=== PATIENT | female | born 1960 | race Caucasian/White ===

== ENCOUNTER → 2018-03-30 | Outpatient (CLI) | payer MEDICARE ==
[~2018-03-30] MED LIST: BACITRACIN-NEO0.9 GM PO; BACTRIM DS 8001 TA1 PO; CEPHALEXIN500 M1 PO; CLEOCIN150 MG PO; Motrin,Rufen800 MG PO; NORCO 5-325 TA1 EACH PO; SEPTDS PO; SUBOXONE 8 MG-1 EACH SL
[2018-03-31 12:06] LABS: HEPATITIS B SURFACE AB 006395 Non Reactive (.); HEPATITIS B SURFACE AG Negative (Negative)
[2018-03-31 15:16] LABS: HEPATITIS C AB >11.0 (0.0-0.9)
== END | disposition home or self-care (01) ==
LOC: LAB 18:12
PROVIDERS: Psychiatry & Neurology Psychiatry
DX: Z11.59 Encounter for screening for other viral diseases (principal); Z72.89 Other problems related to lifestyle

== ENCOUNTER 2018-11-15 13:43 | Emergency (ER) | payer MEDICARE ==
[~2018-11-15] VITALS: Ht 152.4 cm; Wt 51.7 kg
[2018-11-15 13:46] VITALS: BP 133/75
[2018-11-15 14:30] LABS: BASO # 0.1 10*3/uL (0.0-0.1); BASO % 0.9 % (0.0-1.0); EOS # 0.1 10*3/uL (0.0-0.4); EOS % 1.3 % (1.0-4.0); HEMOGLOBIN 14.7 g/dl (12.0-16.0); LYMPH # 2.5 10*3/uL (1.3-4.4); LYMPH % 35.4 % (27.0-41.0); MEAN CELL VOLUME 97.2 fl (81.0-99.0); MEAN CORPUSCULAR HGB 31.7 pg (27.0-31.0); MEAN CORPUSCULAR HGB CONC 32.7 g/dl (33.0-37.0); MEAN PLATELET VOLUME 9.4 fl (9.6-12.3); MONO # 0.7 10*3/uL (0.1-1.0); MONO % 9.5 % (3.0-9.0); NEUT # 3.7 10*3/uL (2.3-7.9); NEUT % 52.8 % (47.0-73.0); PLATELET COUNT AUTOMATED 259 10*3/uL (130-400); RED BLOOD COUNT 4.63 10*6/uL (4.10-5.10); WHITE BLOOD COUNT 6.9 10*3/uL (4.8-10.8)
[2018-11-15 14:41] LABS: ACT PARTIAL THROMBO TIME 28.1 SECONDS (20.0-32.1); INTERNATIONAL NORM RATIO 0.9 (2.0-3.5)
--- NOTE | 2018-11-15 14:45 | NUR ---
2 ATTEMPTS AT AN IV FAILED. I WILL ASK ANOTHER NURSE TO LOOK FOR A SITE
[2018-11-15 14:50] LABS: ALBUMIN 3.2 gm/dl (3.1-4.5); ALKALINE PHOSPHATASE 335 U/L (45-117); BUN 13 mg/dl (7-24); CHLORIDE 107 mmol/L (98-107); CREATININE 0.72 mg/dL (0.55-1.02); POTASSIUM 4.2 mmol/L (3.5-5.1); SGOT/AST 37 IU/L (3-35); SGPT/ALT 33 U/L (12-78); SODIUM 134 mmol/L (136-145); TOTAL PROTEIN 8.3 gm/dL (6.4-8.2)
--- NOTE | 2018-11-15 15:36 | NUR ---
TWO OTHER NURSES TRIED WITHOUT SUCCESS FOR AN IV SITE. RENITA VIRGEN NOTIFED
--- NOTE | 2018-11-15 15:45 | NUR ---
I CALLED THE LAB TO SEE WHY THE URINE WAS SAYING NOT RECIEVED WHEN I SENT IT OVER A HALF HOUR AGO. THEY LOOKED IN THE TUBE SYSTEM AND THEY DID HAVE IT
[2018-11-15 15:56] LABS: BILIRUBIN NEGATIVE (NEGATIVE); BLOOD NEGATIVE (NEGATIVE); CLARITY CLEAR (CLEAR); COLOR YELLOW (YELLOW); GLUCOSE NEGATIVE (NEGATIVE); KETONE NEGATIVE (NEGATIVE); LEUKO ESTERASE 2+ (NEGATIVE); NITRITE NEGATIVE (NEGATIVE); UROBILINOGEN 0.2 E.U./dl (0.2-1.0)
[2018-11-15 16:03] LABS: URINE AMPHETAMINES < 1000 (1000ng/ml); URINE BARBITURATES < 200 (200ng/ml); URINE BENZODIAZEPINES < 200 (200ng/ml); URINE CANNABINOIDS (THC) > 50 (50ng/ml); URINE COCAINE < 300 (300ng/ml); URINE METHADONE < 300 (300ng/ml); URINE OPIATES < 300 (300ng/ml)
[2018-11-15 16:06] LABS: URINE PHENCYCLIDINE < 25 (25ng/ml)
--- NOTE | 2018-11-15 16:25 | NUR ---
UPWARDS OF 8 IV INSERTION ATTEMPTS HAVE BEEN UNSUCCESSFUL. THE PATIENT IN MY OPINION HAS NO PERIPHERAL SITES ON ARMS OR FEET. PROVIDER AND PT'S NURSE MADE AWARE.
--- NOTE | 2018-11-15 16:35 | NUR ---
I CALLED THE RECIEVING NURSE TO LET HER KNOW THAT IV ACCESS HAS NOT BEEN OBTAINED YET. VERBAL UNDERSTANDING NOTED
--- NOTE | 2018-11-15 17:17 | NUR ---
THE PT DOES NOT WANT TO BE ADMITTED NOW. SHE DOES NOT WANT TO BE STUCK ANYMORE. SHE WOULD LIKE TO TRY ANOTHER ROUND OF ORAL ANTIBIOTICS. DR HARRIS AND RENITA VIRGEN HAVE BOTH BEEN NOTIFIED OF PATIENT REQUEST
[2018-11-15] MEDS ORDERED: FLAGYL500 MG PO (17:23)
[2018-11-15] MEDS ORDERED: CIPRO500 MG PO (17:23)
--- NOTE | 2018-11-15 17:31 | NUR ---
EDThe patient, PHYLLIS MENDEZ, 58, 60, [id number], [id number], presented to the Emergency Department at 1345. The patient's Chief Complaint was CELLULITIS. The patient subsequently left "Against Medical Advice" at 1730. Treatment completed included BLOOD WORK, X-RAY, CAT SCAN, URINE SCREEN, URINE DRUGS, MULTIPLE ATTEMPTS AT IV ACCESS . Possible complications and consequences of not following medical advice were clearly explained to the patient by Dr. PROMISE ARZOLA , and DARWIN CANDELARIO LPN RN. Assessment of the patient's competence, for making the decision to refuse completion of previously requested exam and treatment, includes alert and oriented. Attempts made to get patient involved in persuading the patient to accept, ANUSHA Tay DNP, the physician's recommendations. Discussion included . The patient's response was I DONT WANT STUCK ANYMORE . Family/friends who witnessed the discussion includes . Signatures WERE requested. The patient DID sign the chart; this was witnessed by DARWIN CANDELARIO LPN RN. The patient's reason for departing, prior to completion of treatment was OTHER. The patient's disposition is dc against medical advice, to the care of patient. Arrangements have been made for the ED staff to "Call Back" the patient the following day, to inquire about the patient's medical status and encourage PHYLLIS MENDEZ, to seek medical attention, if this has not been completed. DARWIN CANDELARIO
== END 2018-11-15 17:30 | disposition left against medical advice (07) ==
LOC: ED 13:43 → EDHOLD 15:59 → ED 15:59 → 4E 16:31 → EDHOLD 16:31 → ED 17:30
PROVIDERS: Nurse Practitioner Family
DX: L03.011 Cellulitis of right finger (principal); F11.90 Opioid use, unspecified, uncomplicated; F17.200 Nicotine dependence, unspecified, uncomplicated; Z86.14 Personal history of Methicillin resistant Staphylococcus aureus infection; Z79.899 Other long term (current) drug therapy

== ENCOUNTER → 2019-01-06 | Outpatient (CLI) | payer MEDICARE ==
[~2019-01-06] MED LIST changes: +CIPRO500 MG PO; +FLAGYL500 MG PO
[2019-01-06 15:30] LABS: BASO # 0.1 10*3/uL (0.0-0.1); BASO % 0.6 % (0.0-1.0); EOS # 0.1 10*3/uL (0.0-0.4); EOS % 0.6 % (1.0-4.0); HEMATOCRIT 45.5 % (37.0-47.0); HEMOGLOBIN 14.8 g/dl (12.0-16.0); LYMPH # 2.8 10*3/uL (1.3-4.4); LYMPH % 28.8 % (27.0-41.0); MEAN CELL VOLUME 97.6 fl (81.0-99.0); MEAN CORPUSCULAR HGB 31.8 pg (27.0-31.0); MEAN CORPUSCULAR HGB CONC 32.5 g/dl (33.0-37.0); MEAN PLATELET VOLUME 11.5 fl (9.6-12.3); MONO # 0.4 10*3/uL (0.1-1.0); MONO % 3.8 % (3.0-9.0); NEUT # 6.3 10*3/uL (2.3-7.9); NEUT % 65.8 % (47.0-73.0); PLATELET COUNT AUTOMATED 221 10*3/uL (130-400); RED BLOOD COUNT 4.66 10*6/uL (4.10-5.10); RED CELL DISTRI WIDTH 14.8 % (0-14.5); WHITE BLOOD COUNT 9.6 10*3/uL (4.8-10.8)
[2019-01-06 16:06] LABS: VITAMIN D, 25-HYDROXY 13.9 ng/mL (30-100)
[2019-01-06 16:19] LABS: ALBUMIN 3.5 gm/dl (3.1-4.5); BUN 10 mg/dl (7-24); CHLORIDE 110 mmol/L (98-107); POTASSIUM 3.1 mmol/L (3.5-5.1); SGOT/AST 29 IU/L (3-35); SGPT/ALT 26 U/L (12-78); SODIUM 137 mmol/L (136-145)
[2019-01-06 16:31] LABS: ALKALINE PHOSPHATASE 250 U/L (45-117); CHOLESTEROL 146 mg/dL (<200); CREATININE 0.75 mg/dL (0.55-1.02); HDL CHOLESTEROL 41 mg/dl (40-60); LDL CHOLESTEROL 75 mg/dL (9-159); TRIGLYCERIDES 148 mg/dl (<150); VLDL CHOLESTEROL 30 mg/dL (6-40)
== END | disposition home or self-care (01) ==
LOC: RESCLI 00:54
PROVIDERS: Student in an Organized Health Care Education/Training Program
DX: Z12.11 Encounter for screening for malignant neoplasm of colon (principal); Z12.4 Encounter for screening for malignant neoplasm of cervix; M54.5 Low back pain; G89.29 Other chronic pain; F32.9 Major depressive disorder, single episode, unspecified; Z79.899 Other long term (current) drug therapy; Z88.8 Allergy status to other drugs, medicaments and biological substances

== ENCOUNTER 2020-08-19 16:17 | Inpatient (IN) | payer MEDICARE ==
[~2020-08-19] VITALS: Ht 154.9 cm; Wt 55.8 kg
[2020-08-19 16:39] VITALS: BP 124/74
[2020-08-19 18:00] VITALS: BP 124/74
[2020-08-19 18:47] LABS: BASO % 0.5 % (0.0-1.0); EOS # 0.1 10*3/uL (0.0-0.4); EOS % 0.7 % (1.0-4.0); HEMATOCRIT 41.4 % (37.0-47.0); LYMPH # 1.8 10*3/uL (1.3-4.4); LYMPH % 20.4 % (27.0-41.0); MEAN CELL VOLUME 95.4 fl (81.0-99.0); MEAN CORPUSCULAR HGB 31.6 pg (27.0-31.0); MEAN CORPUSCULAR HGB CONC 33.1 g/dl (33.0-37.0); MEAN PLATELET VOLUME 8.9 fl (9.6-12.3); MONO # 0.9 10*3/uL (0.1-1.0); MONO % 10.5 % (3.0-9.0); NEUT # 5.9 10*3/uL (2.3-7.9); NEUT % 67.7 % (47.0-73.0); PLATELET COUNT AUTOMATED 297 10*3/uL (130-400); RED BLOOD COUNT 4.34 10*6/uL (4.10-5.10); RED CELL DISTRI WIDTH 12.2 % (0-14.5); WHITE BLOOD COUNT 8.8 10*3/uL (4.8-10.8)
[2020-08-19 19:00] VITALS: BP 122/72
[2020-08-19 19:02] LABS: ACT PARTIAL THROMBO TIME 30.5 SECONDS (20.0-32.1)
[2020-08-19 19:06] LABS: ALBUMIN 3.1 gm/dl (3.1-4.5); ALKALINE PHOSPHATASE 220 U/L (45-117); BUN 12 mg/dl (7-24); CHLORIDE 104 mmol/L (98-107); CREATININE 0.84 mg/dL (0.55-1.02); POTASSIUM 3.5 mmol/L (3.5-5.1); SGOT/AST 23 IU/L (3-35); SGPT/ALT 22 U/L (12-78); SODIUM 136 mmol/L (136-145); TOTAL PROTEIN 7.9 gm/dL (6.4-8.2)
[2020-08-19 19:08] LABS: TROPONIN I < 0.015 ng/ml (<0.045)
[2020-08-19 20:15] VITALS: BP 124/74
[2020-08-19 21:15] VITALS: BP 120/72
[2020-08-19 22:09] VITALS: BP 120/72
[2020-08-20] MEDS ORDERED: ADVIL200 M1 PO (03:07)
[2020-08-20 03:39] VITALS: BP 129/73
[2020-08-20 05:36] LABS: ALBUMIN 2.8 gm/dl (3.1-4.5); ALKALINE PHOSPHATASE 205 U/L (45-117); BUN 8 mg/dl (7-24); CHLORIDE 108 mmol/L (98-107); CREATININE 0.66 mg/dL (0.55-1.02); POTASSIUM 3.9 mmol/L (3.5-5.1); SGOT/AST 18 IU/L (3-35); SGPT/ALT 20 U/L (12-78); SODIUM 137 mmol/L (136-145); TOTAL PROTEIN 7.5 gm/dL (6.4-8.2)
[2020-08-20 06:22] LABS: BASO % 0.3 % (0.0-1.0); EOS % 0.3 % (1.0-4.0); HEMATOCRIT 41.5 % (37.0-47.0); LYMPH # 1.6 10*3/uL (1.3-4.4); LYMPH % 18.3 % (27.0-41.0); MEAN CELL VOLUME 96.5 fl (81.0-99.0); MEAN CORPUSCULAR HGB 31.6 pg (27.0-31.0); MEAN CORPUSCULAR HGB CONC 32.8 g/dl (33.0-37.0); MEAN PLATELET VOLUME 9.9 fl (9.6-12.3); MONO # 1.1 10*3/uL (0.1-1.0); MONO % 12.7 % (3.0-9.0); NEUT % 68.2 % (47.0-73.0); PLATELET COUNT AUTOMATED 288 10*3/uL (130-400); RED CELL DISTRI WIDTH 12.4 % (0-14.5); WHITE BLOOD COUNT 8.8 10*3/uL (4.8-10.8)
[2020-08-20 09:06] VITALS: BP 128/77
[2020-08-20 15:52] VITALS: BP 137/99
[2020-08-20 17:51] VITALS: BP 153/76
[2020-08-20 18:00] VITALS: BP 147/79
[2020-08-20 20:17] VITALS: BP 155/83
[2020-08-21] VITALS: BP 126/70
[2020-08-21 04:00] VITALS: BP 126/70
[2020-08-21 06:32] LABS: BASO % 0.6 % (0.0-1.0); EOS # 0.1 10*3/uL (0.0-0.4); EOS % 0.9 % (1.0-4.0); HEMATOCRIT 40.1 % (37.0-47.0); LYMPH # 2.6 10*3/uL (1.3-4.4); LYMPH % 38.5 % (27.0-41.0); MEAN CORPUSCULAR HGB 31.2 pg (27.0-31.0); MEAN CORPUSCULAR HGB CONC 34.2 g/dl (33.0-37.0); MONO # 0.6 10*3/uL (0.1-1.0); MONO % 8.2 % (3.0-9.0); NEUT # 3.5 10*3/uL (2.3-7.9); NEUT % 51.5 % (47.0-73.0); PLATELET COUNT AUTOMATED 304 10*3/uL (130-400); RED BLOOD COUNT 4.39 10*6/uL (4.10-5.10); RED CELL DISTRI WIDTH 12.1 % (0-14.5); WHITE BLOOD COUNT 6.8 10*3/uL (4.8-10.8)
[2020-08-21 06:34] LABS: MEAN CELL VOLUME 91.3 fl (81.0-99.0)
[2020-08-21 06:45] LABS: BUN 10 mg/dl (7-24); CHLORIDE 109 mmol/L (98-107); CREATININE 0.53 mg/dL (0.55-1.02); POTASSIUM 3.4 mmol/L (3.5-5.1); SODIUM 140 mmol/L (136-145)
[2020-08-21 08:00] VITALS: BP 133/70
[2020-08-21 12:00] VITALS: BP 129/76
[2020-08-21 16:14] VITALS: BP 113/55
[2020-08-21 20:00] VITALS: BP 152/74
[2020-08-22] VITALS: BP 134/73
[2020-08-22 04:00] VITALS: BP 134/73
[2020-08-22 08:00] VITALS: BP 130/75
[2020-08-22] MEDS ORDERED: DOXYCYCLINE100 M3 PO ×2 (09:18→09:20)
[2020-08-22] MEDS ORDERED: CEPHALEXIN500 M1 PO ×2 (09:18→09:20)
== END 2020-08-22 11:11 | disposition home or self-care (01) | DRG 602 ==
LOC: ED 16:17 → 5E 21:27 → EDHOLD 21:27 → 5E 08-20 17:08
PROVIDERS: Emergency Medicine; Internal Medicine; Student in an Organized Health Care Education/Training Program; ADMIT Internal Medicine; ATTEND Internal Medicine
DX: L03.113 Cellulitis of right upper limb (principal); E43 Unspecified severe protein-calorie malnutrition; F11.10 Opioid abuse, uncomplicated; B18.2 Chronic viral hepatitis C; F17.210 Nicotine dependence, cigarettes, uncomplicated; S60.551A Superficial foreign body of right hand, initial encounter; S40.851A Superficial foreign body of right upper arm, initial encounter; S60.351A Superficial foreign body of right thumb, initial encounter; Z71.6 Tobacco abuse counseling; X58.XXXA Exposure to other specified factors, initial encounter; Y93.89 Activity, other specified; Y92.89 Other specified places as the place of occurrence of the external cause; Y99.8 Other external cause status; Z68.23 Body mass index [BMI] 23.0-23.9, adult

== ENCOUNTER 2022-10-21 00:32 | Emergency (ER) | payer OTHER ==
[~2022-10-21] VITALS: Ht 162.5 cm; Wt 61.7 kg
[~2022-10-21 00:32] MED LIST changes: +ADVIL200 M1 PO; +DOXYCYCLINE100 M3 PO
[2022-10-21] MEDS ORDERED: TRAZODONE100 MG PO (00:44)
[2022-10-21] MEDS ORDERED: VENLAFAXINE HY150 M2 PO (00:44)
[2022-10-21] MEDS ORDERED: ATORVASTATIN CA10 M1 PO (00:45)
[2022-10-21] MEDS ORDERED: BUSPAR15 MG PO (00:46)
[2022-10-21] MEDS ORDERED: PROPRANOLOL HCL20 MG PO (00:46)
[2022-10-21 01:30] LABS: BASO # 0.1 10*3/uL (0.0-0.1); BASO % 0.9 % (0.0-1.0); EOS % 0.6 % (1.0-4.0); HEMATOCRIT 41.5 % (37.0-47.0); LYMPH # 2.6 10*3/uL (1.3-4.4); LYMPH % 48.8 % (27.0-41.0); MEAN CELL VOLUME 93.9 fl (81.0-99.0); MEAN CORPUSCULAR HGB CONC 35.2 g/dl (33.0-37.0); MEAN PLATELET VOLUME 9.4 fl (9.6-12.3); MONO # 0.5 10*3/uL (0.1-1.0); MONO % 8.7 % (3.0-9.0); NEUT # 2.2 10*3/uL (2.3-7.9); NEUT % 40.8 % (47.0-73.0); PLATELET COUNT AUTOMATED 195 10*3/uL (130-400); RED BLOOD COUNT 4.42 10*6/uL (4.10-5.10); RED CELL DISTRI WIDTH 12.5 % (0-14.5); WHITE BLOOD COUNT 5.3 10*3/uL (4.8-10.8)
[2022-10-21 01:49] LABS: ALKALINE PHOSPHATASE 175 U/L (46-116); BUN 7 mg/dl (9-23); CHLORIDE 110 mmol/L (98-107); POTASSIUM 3.9 mmol/L (3.4-5.1); SGPT/ALT 39 U/L (10-49); TOTAL PROTEIN 6.5 gm/dL (6.0-8.0)
[2022-10-21 01:53] LABS: BILIRUBIN Negative (Negative); BLOOD Negative (Negative); CLARITY Clear (Clear); COLOR Yellow (Yellow); GLUCOSE Negative (Negative); KETONE Negative (Negative); LEUKO ESTERASE Negative (Negative); NITRITE Negative (Negative); SPECIFIC GRAVITY <= 1.005 (1.001-1.030)
[2022-10-21 02:00] LABS: URINE AMPHETAMINES Negative (1000ng/ml); URINE BARBITURATES Negative (200ng/ml); URINE BENZODIAZEPINES Positive (200ng/ml); URINE CANNABINOIDS (THC) Positive (50ng/ml); URINE COCAINE Positive (300ng/ml); URINE METHADONE Negative (300ng/ml); URINE OPIATES Negative (300ng/ml); URINE PHENCYCLIDINE Negative (25ng/ml)
== END 2022-10-21 05:49 | disposition short-term general hospital (02) ==
LOC: ED 00:32
PROVIDERS: Internal Medicine
DX: T50.901A Poisoning by unspecified drugs, medicaments and biological substances, accidental (unintentional), initial encounter (principal); R79.89 Other specified abnormal findings of blood chemistry; R00.1 Bradycardia, unspecified; N18.31 Chronic kidney disease, stage 3a; Z90.89 Acquired absence of other organs; Z98.890 Other specified postprocedural states; F17.200 Nicotine dependence, unspecified, uncomplicated; F19.10 Other psychoactive substance abuse, uncomplicated; F12.90 Cannabis use, unspecified, uncomplicated; Y92.009 Unspecified place in unspecified non-institutional (private) residence as the place of occurrence of the external cause